=== PATIENT | female | born 1995 | race Caucasian/White ===

== ENCOUNTER 2024-09-25 19:29 | Emergency (ER) | payer BC, SELFPAY ==
--- OUTSIDE RECORDS SUMMARY | 2024-09-25 19:31 | XMS_ITS | Clinical Summary ---
Author Organization [facility] Address [address] [place] [address] Care Team Providers Care Packager Machine Name Role Phone Elsewhere, Pcp Primary Care Provider Unavailabl e Source Comments Patient records contain information from all sites at [facility]. For routine questions regarding patient records, call [phone] during business hours, M-F 8:00 AM - 5:00 PM Central Time. Record requests for emergency care only can be directed to [phone] at any time.[facility] Allergies Active Allergy Reactions Criticality Noted Date Comments Citric Acid Other (see comments) 07/13/2014 Kidney pain Sulfa (Sulfonamide Antibiotics) Other (see comments) 03/17/2021 Hives when younger Sulfadiazine Other (see comments) 07/13/2014 Medications no115/iron/foli c acid ( 19 ORAL) Active omeprazole (PriLOSEC) [address] capsule Take 40 mg by mouth daily. 1 Active doxylamine (UNISOM) 25 mg tablet Take 0.5 tablets (12.5 mg total) by mouth every 6 (six) hours as needed for nausea for up to 14 days. 50 tablet 1 1 Active Rexulti 2 mg tablet Take 2 mg by mouth daily. 2 Active LORazepam (ATIVAN) 0.5 mg tablet Take 0.5 mg by mouth 3 (three) times a day as needed for anxiety. Active sertraline (ZOLOFT) 50 mg tablet Take 1 tablet (50 mg total) by mouth daily for 14 days. 14 tablet 2 Active Additional Information Patient not taking.Reported on 09/04/2023 sertraline (ZOLOFT) 100 mg tablet Take 1.5 tablets by mouth daily. 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 Alcohol Moderate Or Severe U se Disorder (Dependence) Uncomplicated Resolved Problems Problem Noted Date Diagnosed Date Resolved Date Hypomagnesemia 10/02/2020 10/02/2020 Hypocalcemia 10/02/2020 10/02/2020 Hyponatremia 10/02/2020 10/02/2020 Immunizations Immunization Administration Dates Next Due MMR 07/03/2015 Tdap 06/24/2015 Social History Tobacco Use Types Packs/Day Years Used Date Smoking Tobacco: Former Cigarettes Smokeless Tobacco: Never Tobacco Cessation:Counseling Given: Not Answered Comments:E-cig Alcohol Use Standard Drinks/Week Comments Not Currently 0 (1 standard drink = 0.6 oz pur e alcohol) special occasions Nutrition Answer Date Recorded Nutrition: EVOO Fat Source Unknown 09/18 Nutrition: Servings of Fruits/Vegetables per Day Not on file 09/18/2020 Dental Answer Date Recorded Dental: Regular Dentist Unknown 09/19/19 21 Comments No Sex and Gender Information Value Date Recorded Sex Assigned at Not on file Legal Sex Female 4:49 PM DOCK GUARD Gender Identity Not on file Sexual Orientation Not on file Last Filed Vital Signs Vital Sign Reading Time Taken Comments Blood Pressure 96/62 09/25/2023 3:36 PM CDT Pulse 83 09/25/2023 3:36 PM CDT Temperature 36.8 C (98.2 F) 09/25/2023 3:36 PM CDT Respiratory Rate 19 01/09/2023 10:15 AM CDT Oxygen Saturation 100% 09/04/2023 4:14 PM DOCK GUARD Inhaled Oxygen Concentration - - Weight 56.9 kg (125 lb 6.4 oz) 09/25/2023 3:36 P M CDT Height 162.6 cm (5' 4) 06/25/2022 12:12 PM DOCK GUARD Body Mass Index 21.52 06/25/2022 12:12 PM DOCK GUARD Plan of Treatment Health Maintenance Due Date Last Done Comments Cervical/Vaginal Cancer Screening 1994 Depression Monitoring (PHQ-9) 1994 HIV Screening 1994 Hepatitis B Screening 1994 Hepatitis C Screening 1994 Tobacco Cessation counseling 1994 Hepatitis B Vaccines (1 of 3 - 19+ 3-dose series) 2013 Pneumococcal vaccine (0-49 years) (1 of 2 - PCV) 2013 Glucose Test for Med Monitoring 01/10/2024 01/09/2023, 01/09/2023, 06/25/2022, Additional history exists COVID-19 Vaccine ( - season) 2024 Influenza Vaccine (#1) 2024 04/28/2021 Depression Monitoring (PHQ-9 for quality tracking) 07/17/2024 DTaP,Tdap,and Td Vaccines (3 - Td or Tdap) 01/20/2030 01/21/2020, 06/24/2015 HPV Vaccines Aged Out No longer eligi ble based on patient's age to complete this topic IPV Vaccines Aged Out No longer eligi ble based on patient's age to complete this topic Procedures Procedure Name Priority Date/Time Associated Diagnosis Comments BASIC METABOLIC PANEL, S/P STAT 01/09/2023 8:01 AM CDT from Last 3 Months or Most Recently Relevant to Health Maintenance Results * (ABNORMAL) Basic Metabolic Panel (01/09/2023 8:01 AM CDT) Potassium, P 3.4(L) 3.6 - 5.2 mmol/L 01/09/2023 8:32 AM CDT NPRG Sodium, P 139 135 - 145 mmol/L 01/09/2023 8:32 AM CDT NPRG Chloride, P 103 98 - 107 mmol/L 01/09/2023 8:32 AM CDT NPRG Bicarbonate, P 25 22 - 29 mmol/L 01/09/2023 8:32 AM CDT NPRG Anion Gap, P 11 7 - 15 01/09/2023 8:32 AM CDT NPRG BUN (Blood Urea Nitrogen), P 16 6 - 21 mg/dL 01/09/2023 8:32 AM CDT NPRG Creatinine 0.88 0.59 - 1.04 mg/dL 01/09/2023 8:32 AM CDT NPRG Estimated GFR (eGFR) >90 >=60 mL/min/BSA 01/09/2023 8:32 AM CDT NPRG Comment: Estimated GFR calculated using the 2020 CKD_EPI creatinine equation. Calcium, Total, P 9.2 8.6 - 10.0 mg/dL 01/09/2023 8:32 AM CDT NPRG Glucose, P 106 70 - 140 mg/dL 01/09/2023 8:32 AM CDT NPRG Blood (Blood, Venous) 01/09/2023 8:01 AM CDT 01/09/2023 8:06 AM CDT Stalin Roca M.D. LAB BLOOD ADD-ON Final Resul t [facility] [address] [place] [address], [place] NPRG [facility] [address] [place] [address] from Last 3 Months or Most Recently Relevant to Health Maintenance Insurance [facility] [place] [address] Advance Directives For more information, please contact: [phone] * Full Code (Latest Code Status on File) Date Activated Date Inactivated Comments 09/30/2020 9:02 PM 10/02/2020 1:51 PM Question Answer Comments Full Code: Discussed * Full Code Date Activated Date Inactivated Comments 09/30/2020 8:20 PM 09/30/2020 8:41 PM Question Answer Comments Full Code: Discussed Care Teams Packager Machine Relationship Specialty Start Date End Date Elsewhere, Pcp PCP - General 11/07/21
--- OUTSIDE RECORDS SUMMARY | 2024-09-25 19:31 | XMS_ITS | Clinical Summary ---
Author Organization [facility] Address [address] [place] [id number] Care Team Providers Care Eligibility Specialist Name Role Phone No Ref-Primary, Physician Primary Care Provider Allergies Active Allergy Reactions Criticality Noted Date Comments Sulfa Antibiotics 03/17/2021 Hives when younger Medications sertraline (ZOLOFT) 100 MG tabletIndications :Major Depressive Disorder Take 200 mg by mouth daily Active Vit-Fe Fumarate-FA ( MULTIVITAMIN W/IRON) 27-0.8 MG tablet Take 1 tablet by mouth daily Active ferrous sulfate (FEROSUL) 325 (65 Fe) MG tablet Take 325 mg by mouth daily (with breakfast) Active Vitamin D3 (CHOLECALCIFEROL) 25 mcg (1000 units) tablet Take by mouth daily Active acetaminophen (TYLENOL) 500 MG tabletIndications : (spontaneous vaginal delivery) Take 1-2 tablets (500-1,000 mg) by mouth every 6 hours as needed for mild pain 30 tablet 1 Active ibuprofen (ADVIL/MOTRIN) 600 MG tabletIndications : (spontaneous vaginal delivery) Take 1 tablet (600 mg) by mouth every 6 hours as needed for moderate pain 30 tablet 1 Active SENNA-docusate sodium (SENNA S) 8.6-50 MG tabletIndications : (spontaneous vaginal delivery) Take 1 tablet by mouth At Bedtime 30 tablet 1 Active Active Problems Problem Noted Date Diagnosed Date Indication for care in labor or delivery 021 Immunizations Name Administration Dates Next Due MMR (MMRII) 03/18/2021(Deferred: - Patient i s Immune to Rubella) Social History Tobacco Use Types Packs/Day Years Used Date Smoking Tobacco: Some Days Vaping Device Smokeless Tobacco: Current Comments:e-cig Alcohol Use Standard Drinks/Week Comments Never 0 (1 standard drink = 0.6 oz pur e alcohol) [place] Depression Scale Answer Date Recorded [place] Depression Score 6 03/18/2021 Last EPDS Self Harm Result Not on file 03/18 Adolescent Education Answer Date Record ed Getting School Help Needed Not on file 04/08 Comments No Sex and Gender Information Value Date Recorded Sex Assigned at Not on file Legal Sex Female 4:57 PM CDT Gender Identity Not on file Sexual Orientation Not on file Last Filed Vital Signs Vital Sign Reading Time Taken Comments Blood Pressure 127/82 03/18/2021 9:32 AM CDT Pulse 80 03/18/2021 9:32 AM CDT Temperature 36.8 C (98.2 F) 03/18/2021 9:32 AM CDT Respiratory Rate 16 03/18/2021 9:32 AM CDT Oxygen Saturation - - Inhaled Oxygen Concentration - - Weight 70.8 kg (156 lb) 03/17/2021 5:13 PM CDT Height 162.6 cm (5' 4) 03/17/2021 5:13 PM CDT Body Mass Index 26.78 03/17/2021 5:13 PM CDT Plan of Treatment Not on file Insurance MEDICAID [place] Advance Directives For more information, please contact: [phone] * Full Code (Latest Code Status on File) Date Activated Date Inactivated Comments 03/17/2021 5:28 PM 03/17/2021 6:04 PM All basic and advanced life-sustaining interventions are performed as appropriate Question Answer Comments Code status determined by: Discussion with patie nt/ legal decision maker Care Teams Eligibility Specialist Relationship Specialty Start Date End Date No Ref-Primary, Physician PCP - General 03/18/21
[2024-09-25 19:32] VITALS: BP 109/66; PULSE 68; RESP 16; TEMP 36.8; O2SAT 97; BMI 24.3
--- NOTE | 2024-09-25 19:42 | ED.GENADULT ---
HPI - General Adult General Date Seen: 09/25/24 Chief complaint: Extremity Pain/Injury, Lower Stated complaint: knee pain Time Seen by Provider: 09/25/24 19:36 History of Present Illness HPI narrative: 29-year-old female presenting to the ER today for evaluation of injuries. She rolled her ankle and she felt like her knee ?popped? this evening while she was running. Since her knee pop she has been feeling pain on the lateral aspect of her knee and a little bit of pain in the posterior aspect. When she tries to stand up she says her knee feels unstable and she feels like it is going to been sideways or backwards and give out. She is not having any pain in her ankle or in her lower calf. Her pain is predominantly in the lateral side of the knee and posterior. She has not had any swelling. No bruising. No pain in her quad, femur, or hip. She did not hit her head. She is a previous athlete but has no previous severe knee injuries or surgery. Related Data Home Medications ?Medication ?Instructions ?Recorded ?Confirmed mirtazapine 15 mg tablet mg 09/25/24 sertraline 100 mg tablet mg 09/25/24 Allergies Allergy/AdvReac Type Severity Reaction Status Date / Time Sulfa (Sulfonamide Allergy Hives Verified 09/25/24 19:40 Antibiotics) [facility] Social History Smoking Status: Current every day smoker How often do you have a drink containing alcohol: never AUDIT-C Alcohol total score: 0 Non-prescribed substance use: denies use Exam Narrative: Exam Narrative: Constitutional: Appears well-developed and well-nourished. Active. Non-toxic appearing. Polite HENT: Head: Atraumatic. No signs of injury. Nose: No nasal discharge. Mouth/Throat: Mucous membranes are moist. Pharynx is normal. Tonsils symmetric. Uvula midline. Airway patent. Eyes: Conjunctivae normal and EOM are normal. Pupils are equal, round, and reactive to light. Right eye exhibits no discharge. Left eye exhibits no discharge. No icterus. Neck: Normal range of motion. Neck supple. No adenopathy. No stridor. Cardiovascular: Normal rate and regular rhythm. No murmur heard. No murmurs, rubs, or gallops. Brisk capillary refill . Normal PT and DP pulses Pulmonary/Chest: Effort normal. No stridor. No respiratory distress. Musculoskeletal: Normal except for her right knee- Normal range of motion. No edema. No tenderness. No deformity. Right lower extremity: Hip nontender. Quadriceps, hamstring, femur nontender. Knee: Normal inspection. No bruising. No redness. No swelling. She is tender over the lateral knee and proximal fibula and also tender over the popliteal fossa. No obvious deformity. No bony crepitus. After negative x-rays ligamentous exam is performed there was no definitive ligamentous laxity of the ACL, LCL, PCL, MCL. She does have range of motion from full extension to almost 90? of flexion. No tenderness of the distal tibia or fibula. Ankle is nontender. Foot nontender. Neurological: Alert. Normal strength. No cranial nerve deficit or sensory deficit. Coordination normal. GCS eye subscore is 4. GCS verbal subscore is 5. GCS motor subscore is 6. Distally neurovascularly intact. Skin: Skin is warm. No rash noted. Const: Vital Signs, click to edit/add: Vital Signs - 24 hr 09/25/24 19:32 09/25/24 21:22 Temperature 98.2 F Pulse Rate 66 Pulse Rate [Pulse Oximeter] 68 Respiratory Rate 16 16 Blood Pressure 114/72 Blood Pressure [Ri ght Upper Arm] 109/66 Pulse Oximetry 97 100 Oxygen Delivery Me thod Room Air Course Vital Signs Vital signs: Initial Vital Signs Temperature 98.2 F 09/25/24 19:32 Temperature Source Temporal Artery Scan 09/25/24 19:32 Pulse Rate 68 09/25/24 19:32 Respiratory Rate 16 09/25/24 19:32 Blood Pressure 109/66 09/25/24 19:32 Blood Pressure Mean 80 09/25/24 19:32 Pulse Oximetry 97 09/25/24 19:32 Vital Signs Temperature 98.2 F 09/25/24 19:32 Pulse Rate 68 09/25/24 19:32 Respiratory Rate 16 09/25/24 19:32 Blood Pressure 109/66 09/25/24 19:32 Pulse Oximetry 97 09/25/24 19:32 Temperature 98.2 F 09/25/24 19:32 Pulse Rate 66 09/25/24 21:22 Respiratory Rate 16 09/25/24 21:22 Blood Pressure 114/72 09/25/24 21:22 Pulse Oximetry 100 09/25/24 21:22 Oxygen Delivery Method Room Air 09/25/24 21:22 Medical Decision Making MDM Narrative Medical decision making narrative: 29-year-old female presenting to the ER today with a ground level fall where she felt a pop in her right knee and subsequently and has had right knee pain and a sensation of instability. X-rays are negative for any acute fracture. History provided is not really consistent with a patellar dislocation or a complete knee joint dislocation. Concern here is for possible internal derangement of the knee such as ACL tear. On my ligamentous exam I do not detect any definitive laxity however there is some muscular guarding which would limit sensitivity. Patient is placed into a knee immobilizer. Recommended protection of the knee with a mobilizer whenever up and around for the next couple of days and close outpatient follow-up with Ortho in clinic for repeat knee exam. If she has persistent instability or tenderness, knee MRI may be indicated. Precautions for return to the ER reviewed. She is comfortable managing the pain with [id number] medications. Imaging Data XR knee: Attestation: I have reviewed the pertinent imaging results. My impression: no acute fracture Radiologist's impression: IMPRESSION: Unremarkable radiographic examination of the knee. Discharge Plan Discharge Clinical Impression: Acute pain of right knee Patient Disposition: Home, Self-Care Condition: Stable Instructions: Knee Pain (ED) Additional Instructions: As we discussed, please follow-up with the [facility] within the next 2-5 days for a recheck. Call the clinic tomorrow morning to arrange an ER follow-up appointment. [phone] Wear the knee immobilizer when you are up and around to prevent knee bending or twisting. It is okay to take off the immobilizer while your sleeping. Use Tylenol or ibuprofen if needed for pain. Use an ice pack for 20 minutes every 3-4 hours to help reduce pain and swelling Return to the ER right away if you have worsening symptoms such as severe pain in her knee, new swelling in your knee, numbness or pallor in your foot, or any other concerns. Prescriptions: No Action sertraline 100 mg tablet Patient Comments: [NO ORIGINAL SIG] mirtazapine 15 mg tablet Follow Up/Referrals: Provider,Not a Local [Primary Care Provider] - Stand Alone Forms: [employer] Info Instructions
--- NOTE | 2024-09-25 19:52 | CRLHL7_ITS ---
For Patients: As a result of the Century Cures Act, medical imaging exams and procedure reports are released immediately into your electronic medical record. You may view this report before your referring provider. If you have questions, please contact your health care provider. INDICATION: Fall, pain, popping sensation in the knee COMPARISON: None. TECHNIQUE: Three radiographic view(s) of the right knee. FINDINGS: No evident acute displaced fracture. No substantial joint effusion. No substantial degenerative change. IMPRESSION: Unremarkable radiographic examination of the knee. Dictated by Arpan Denton MD @ 09/25/2024 9:03:52 PM (Electronically Signed)
--- OUTSIDE RECORDS SUMMARY | 2024-09-25 20:32 | XMS_ITS | Clinical Summary ---
Author Organization [facility] Address [address] [place] [address] Care Team Providers Care Insurance Associate Name Role Phone No Ref-Primary, Physician Primary [...] drink = 0.6 oz pur e alcohol) Duke Depression Scale Answer Date Recorded Duke Depression Score 6 03/18/2021 Last EPDS Self [...] Advance Directives For more information, please contact: [phone] * Full Code (Latest Code Status on File) Date Activated Date Inactivated Comments 03/17/2021 5:28 PM 03/17/2021 6:04 PM All basic and advanced life-sustaining interventions are performed as appropriate Question Answer Comments Code status determined by: Discussion with patie nt/ legal decision maker Care Teams Insurance Associate Relationship Specialty Start Date End Date No Ref-Primary, Physician PCP - General 03/18/21
--- OUTSIDE RECORDS SUMMARY | 2024-09-25 20:32 | XMS_ITS | Clinical Summary ---
Author Organization [facility] Address [address] [place] [address] Care Team Providers Care Golf Course Architect Name Role Phone Elsewhere, Pcp Primary Care Provider Unavailabl e Source Comments Patient records contain information from all sites at [facility]. For routine questions regarding patient records, call [phone] during business hours, M-F 8:00 AM - 5:00 PM Central Time. Record requests for emergency care only can be directed to [phone] at any time.[facility] Allergies Active Allergy Reactions Criticality Noted [...] on file Legal Sex Female 4:49 PM POWER LINEWORKER Gender Identity Not on file Sexual Orientation Not on file Last Filed Vital Signs Vital Sign Reading Time Taken Comments Blood Pressure 96/62 09/25/2023 3:36 PM CDT Pulse 83 09/25/2023 3:36 PM CDT Temperature 36.8 C (98.2 F) 09/25/2023 3:36 PM CDT Respiratory Rate 19 01/09/2023 10:15 AM CDT Oxygen Saturation 100% 09/04/2023 4:14 PM POWER LINEWORKER Inhaled Oxygen Concentration - - Weight 56.9 kg (125 lb 6.4 oz) 09/25/2023 3:36 P M CDT Height 162.6 cm (5' 4) 06/25/2022 12:12 PM POWER LINEWORKER Body Mass Index 21.52 06/25/2022 12:12 PM POWER LINEWORKER Plan of Treatment Health Maintenance Due Date [...] M.D. LAB BLOOD ADD-ON Final Resul t [facility] [address] [place] [address], [place] NPRG [facility] [address] [place] [address] from Last 3 Months or Most Recently Relevant to Health Maintenance Insurance [facility] [place] [address] Advance Directives For more information, please contact: [phone] * Full Code (Latest Code Status on File) Date Activated Date Inactivated Comments 09/30/2020 9:02 PM 10/02/2020 1:51 PM Question Answer Comments Full Code: Discussed * Full Code Date Activated Date Inactivated Comments 09/30/2020 8:20 PM 09/30/2020 8:41 PM Question Answer Comments Full Code: Discussed Care Teams Golf Course Architect Relationship Specialty Start Date End Date Elsewhere, Pcp PCP - General 11/07/21
[2024-09-25 21:22] VITALS: BP 114/72; PULSE 66; RESP 16; O2SAT 100
== END 2024-09-25 21:27 | disposition home or self-care (01) ==
PROVIDERS: Emergency Provider Emergency Medicine
DX: M25.561 Pain in right knee (principal)
CPT/HCPCS: 73562; 99282; 99283